=== PATIENT | female | born 1935 | race Caucasian/White ===

== ENCOUNTER 2017-08-05 11:19 | Emergency (ER) | payer MEDICARE ==
[2017-08-05 11:29] VITALS: BP 151/87
== END 2017-08-05 13:31 | disposition left against medical advice (07) ==
LOC: ED 11:19
DX: R07.89 Other chest pain (principal); Z53.21 Procedure and treatment not carried out due to patient leaving prior to being seen by health care provider
CPT/HCPCS: 93005; 99282

== ENCOUNTER 2017-08-06 15:22 | Inpatient (IN) | payer MEDICARE ==
[2017-08-06] MEDS ORDERED: Aspirin Low Dose CHEW TAB* 81 MG PO ONE (15:41)
[2017-08-06 16:10] LABS: ABS Basophils 0 10^3/ul (0-0.2); ABS Eosinophils 0 10^3/ul (0-0.6); ABS Lymphocytes 1.5 10^3/ul (1.0-4.8); ABS Monocytes 0.9 10^3/ul (0-0.8); ABS Neutrophils 5.2 10^3/ul (1.5-7.7); ABS Nucleated RBC 0 10^3/ul; Eosinophil % 0.4 % (0-6); Hematocrit 44 % (35-47); Lymphocyte % 19.6 % (25-47); Mean Corpuscular HGB Conc 34 g/dl (31-36); Mean Corpuscular Hemoglobin 32 pg (27-31); Mean Corpuscular Volume 94 fL (80-97); Mean Platelet Volume 9 um3 (7.4-10.4); Nucleated Red Blood Cells % 0.1; Platelet Count 174 10^3/ul (150-450); Red Blood Count 4.68 10^6/ul (4.0-5.4); Red Cell Distribution Width 14 % (10.5-15); White Blood Count 7.8 10^3/ul (3.5-10.8)
--- NOTE | 2017-08-06 16:20 | RAD ---
Indication: Chest pain. Single frontal view of the chest performed at 1545 hours was reviewed. No prior studies available for comparison.. No mediastinal shift is noted. Heart is of normal size and configuration. Lung plummer appear clear. Calcifications are noted surrounding both proximal humeri. 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 IMPRESSION: NO ACTIVE CARDIOPULMONARY DISEASE IS NOTED.
[2017-08-06 16:23] LABS: EGFR Non-African American 67.5 (>60)
[2017-08-06] MEDS ORDERED: Ondansetron INJ* 2 MG/ML VIAL IV PRN (17:11)
[2017-08-06] MEDS ORDERED: Heparin DRIP 25,000 UNITS(*) 25,000 UNITS/500 ML BAG IVPB SCH (17:15)
[2017-08-06] MEDS ORDERED: Heparin VIAL(*) 5000 UNITS/ML VIAL (FIVE THOUSAND) IV SCH (18:00)
[2017-08-06 18:43] LABS: INR 0.97 (0.77-1.02)
[2017-08-06] MEDS ORDERED: Nitroglycerin 2% OINT* 1 GM PAK ONE (19:50)
[2017-08-06] MEDS ORDERED: Clopidogrel TAB* 300 MG PO ONE (21:08)
--- NOTE | 2017-08-06 21:39 | CONS ---
CC: Karina Mcdonald MD, [facility] * CARDIOLOGY CONSULTATION NOTE: DATE OF CONSULT: 08/06/17 INDICATION FOR CONSULTATION: Non Q-wave myocardial infarction, NSTEMI. HISTORY OF PRESENT ILLNESS: The patient is an 82-year-old female with a history of hypertension, hypercholesterolemia, cardiac murmur, who came to the emergency room yesterday because of chest pain. The patient states she was experiencing A tremendous amount of epigastric discomfort with a lot of burping. She had some mild diaphoresis. She denied any lightheadedness, dizziness, or syncope associated with this. The patient used a few TUMS at home without any relief. She did come to the emergency room yesterday with this discomfort. She did get an EKG, which showed normal sinus rhythm with T- wave abnormalities. No evidence of ST segment elevation. The patient waited in the emergency room for a while and then decided to leave against medical advice. The patient went home and she did have some more mild chest pain at home, but slept comfortably overnight. This morning, she called her primary care physician's office and was seen today. Today, her EKG showed more marked T -wave inversions in the lateral leads and was referred back to the emergency room. On arrival to the emergency room, the patient states that she is pain free. Her initial troponin level is 8.3. PAST MEDICAL HISTORY: Significant for hypertension, palpitations, hyperlipidemia, cardiac murmur, distant history of rectal bleeding. ALLERGIES: To SULFA MEDICATIONS and STATIN MEDICATIONS. MEDICATIONS: Outpatient medications are: 1. Atenolol 50 mg a day. 2. Calcium tablets. 3. Fish oil tablets. 4. Zantac 150 mg a day. FAMILY HISTORY: Her father had a history of asthma and diabetes. Mother had diabetes and heart disease. SOCIAL HISTORY: The patient denies tobacco or alcohol use. She lives by herself. The patient is planning a trip to [place] in the next 2 weeks. PHYSICAL EXAM: Height is 5 feet 6 inches, weight 168 pounds. Temperature is afebrile, heart rate is 62, blood pressure 154/94, respiratory rate is 18, oxygen saturation 95% on room air. Sclerae anicteric. Oropharynx is pink without erythema. Carotids are 2+ without bruits. JVD is normal. Thyroid is normal. Cardiac Exam: S1, S2 with a 1/6 systolic ejection murmur heard best at the right upper sternal border. PMI is normal. Lungs are clear to auscultation bilaterally. There is no dullness to percussion. Abdomen is soft, nontender, nondistended with normoactive bowel sounds. Extremities show no edema. She has 2+ pulses throughout. The patient is awake and alert and oriented. She moves all 4 extremities equally. DIAGNOSTIC STUDIES/LAB DATA: EKG today demonstrates normal sinus rhythm with PVC. She has marked T-wave inversions in leads V4 through V6. No evidence of ST segment elevation. Chest x-ray is normal. IMPRESSION: This is an 82-year-old female with a history of hypertension and hypercholesterolemia, who came to the emergency room yesterday with chest pain. She left without being seen. Today, she comes back with a progression of her EKG. Again, today she has no symptoms. Her troponin level is 8.3. The patient was admitted to the intensive care unit. The patient will be started on heparin. The patient will undergo an echocardiogram and likely a cardiac catheterization in the morning. The patient will be given an aspirin a day. She will not be given a statin as she had them in the past and has not tolerated them. Further recommendations pending her hospital course. [id number]/[facility] #: [id number] LUDWIG
--- NOTE | 2017-08-06 21:39 | HP ---
CC: Dr. Mcdonald; Dr. Guillory * HISTORY AND PHYSICAL: DATE OF ADMISSION: 08/06/17 PRIMARY CARE PROVIDER: Dr. Mcdonald. ATTENDING PHYSICIAN WHILE IN THE HOSPITAL: Jessica Torres MD * (report dictated by Chris Hightower NP) CONSULTING LOOM FIXER SUPERVISOR: Dr. Guillory. CHIEF COMPLAINT: Chest discomfort. HISTORY OF PRESENT ILLNESS: Mrs. Martin is an 82-year-old female patient. She has a history of hypertension, hyperlipidemia and GERD. She comes in today stating that she has had intermittent chest discomfort, epigastric discomfort described as a pressure worse with lying down. This has been going on since . She just has not been feeling well. She did have associated nausea with this and it did radiate into her back at times. It has radiated up into her chest at times rather. She says the discomfort had been going on intermittently. She had no exertional chest discomfort. She said she swept her garage on Saturday. This did not bring about the symptoms, but she said the discomfort was coming and going throughout Saturday. She actually came into the ED here yesterday. She was not seen, she left and then went and saw her primary today. She was evaluated by Dr. Mcdonald. Dr. Mcdonald did an EKG, which did show significant changes compared to previous EKGs, particularly Q-wave inversions. Troponin was obtained and it was noted to be abnormal. She says that the pain was mildly worse with lying down. She said it hurts in her whole chest and her arms felt weak. It was happening intermittently on Saturday, went in until Saturday and she saw her primary today and she was referred to the ER for evaluation. She was ultimately found to have a troponin of 10 with EKG changes. There was concern obviously for NSTEMI and we were asked to evaluate for admission. PAST MEDICAL HISTORY: Significant for: 1. Hypertension. 2. Hyperlipidemia. 3. GERD. PAST SURGICAL HISTORY: 1. She has got a tubal ligation. 2. She has had cataract extractions. HOME MEDICATIONS: Include: 1. Zantac 150 mg daily. 2. Fish oil one capsule p.o. daily. 3. Calcium carbonate one tablet p.o. b.i.d. 4. Atenolol 50 mg p.o. daily. ALLERGIES TO MEDICATIONS: Include NEXIUM, STATINS and SULFA. FAMILY HISTORY: Her mother had a history of CHF. Father had a history of asthma. SOCIAL HISTORY: She is a former smoker. She quit over 50 years ago. She smoked for may be 15 years. Occasionally drinks wine. Surrogate decision maker is her son or daughter. REVIEW OF SYSTEMS: There is no documented fever. She denied having any significant weight change. There was no double vision. Denies having any ear discharge. Denied having any rhinorrhea. No sore throat. No thyroid enlargement. She denies having any chest discomfort now. She did have some from my HPI. There has been no orthopnea. There has been no nocturnal dyspnea. There has been no abdominal pain. There was associated nausea and one episode of vomiting. No dysuria. There was no frequency, no seizure, no loss of consciousness, no pruritus and no skin ulcerations. Review of 14 systems was completed, all others negative. PHYSICAL EXAMINATION GENERAL: At this time, Mrs. Martin is an 82-year-old female patient. She appears to be well nourished and well developed. She does not appear to be in any acute distress. VITAL SIGNS: Blood pressure 154/94, pulse 62, respirations 14, O2 sat 95%, temperature 98.9. HEENT: Head: Atraumatic, normocephalic. Eyes: EOMs are intact. Sclerae anicteric and not pale. Throat: Oral mucosa appears to be moist. No oropharyngeal erythema. NECK: Supple. LUNGS: Clear to auscultation bilaterally. There was no wheeze, rales or rhonchi. HEART: Sounds S1, S2. No murmurs, rubs, or gallops are appreciated. ABDOMEN: Soft. It was flat, nontender. Bowel sounds were present. EXTREMITIES: Pulses were 2+ throughout. She is moving all 4 extremities with 5 /5 strength. NEUROLOGIC: The patient is awake, alert, and oriented x3. Tongue is midline. Custodial Laborer were equal. She had no gross focal deficits. SKIN: Intact. DIAGNOSTIC STUDIES/LAB DATA: WBC is 7.8, RBC of 4.68, hemoglobin 15.0, hematocrit 44, platelet count 174. INR is pending. Her sodium was 139, potassium 3.9, chloride 103, bicarb 29, BUN 17, creatinine 0.81, glucose 103, lactic 1.3, calcium 9.5. Total bili 0.3, AST 17, ALT 18, alk phos 78. Troponin 10.16, albumin of 4.2. The patient did have a chest x-ray obtained today that revealed, impression: No evidence of cardiopulmonary disease. EKG from yesterday shows a normal sinus rhythm. She had biphasic T-waves in V5 and V6, but today's EKG does show inversions in V4, 5 and 6, which are now new and also inversions in 2, 3, and aVF, which again are all new compared to her previous EKG from yesterday. Old medical records were reviewed. ASSESSMENT AND PLAN: Mrs. Martin is an 82-year-old female patient fairly healthy and fairly active coming into the ED today with complaints of chest discomfort intermittently since , worse on Saturday night and to Saturday, evaluated today and found to have an elevated troponin with EKG changes. She will be admitted under inpatient status for: 1. Non-ST elevated myocardial infarction. Fortunately, she is chest pain free now. She is unfortunately allergic to statin. My plan, I will touch base with Dr. Guillory. The patient will be for heparin therapy, which has been started and I will go ahead and put her on Lopressor b.i.d. and holding on statin because she cannot take them, she is allergic and we will continue to follow her. An echo has been ordered. We will trend the troponins, get an EKG in the morning and she will be evaluated again by Cardiology tomorrow for possible heart catheterization. Should she have any chest pain throughout the night, we will start nitrates and we will get in touch with Cardiology. 2. Hypertension. We will continue the beta-blockade. 3. Hyperlipidemia. We will check lipid panel in the morning and we will go ahead and continue her medication as prescribed. 4. Gastroesophageal reflux disease. Continue her Zantac. 5. DVT prophylaxis. Heparin drip. 6. Code status. Full code. 7. Fluids, electrolytes, and nutrition. Clear liquid diet and she could be n.p.o. after midnight. TIME SPENT: Time spent on the admission 60 minutes, greater than half the time spent [id number] with the patient obtaining my history and physical, other half time spent going over the plan of care with the patient and implementing the plan of care. I did discuss the plan of care with my attending, Dr. Torres; she is in agreement. CHRIS HIGHTOWER, BALDEMAR [id number]/[facility] #: [id number] LUDWIG
[2017-08-06] MEDS: Nitroglycerin 2% OINT* 1 GM PAK TOPICAL SCH (21:46)
[2017-08-06] MEDS: amLODIPine TAB* 5 MG PO SCH (22:22)
[2017-08-06] MEDS: Metoprolol Tartrate TAB* 25 MG PO SCH (22:26)
[2017-08-06] MEDS ORDERED: NS 0.9% 1000 ML* 1,000 ML IV SCH (23:55)
[2017-08-07 04:48] LABS: EGFR Non-African American 82.6 (>60)
[2017-08-07 07:28] LABS: ABS Basophils 0 10^3/ul (0-0.2); ABS Eosinophils 0 10^3/ul (0-0.6); ABS Lymphocytes 1.6 10^3/ul (1.0-4.8); ABS Monocytes 0.7 10^3/ul (0-0.8); ABS Neutrophils 3.8 10^3/ul (1.5-7.7); ABS Nucleated RBC 0 10^3/ul; Eosinophil % 0.6 % (0-6); Hematocrit 42 % (35-47); Hemoglobin 13.8 g/dl (12.0-16.0); Lymphocyte % 25.7 % (25-47); Mean Corpuscular HGB Conc 33 g/dl (31-36); Mean Corpuscular Hemoglobin 32 pg (27-31); Mean Corpuscular Volume 95 fL (80-97); Mean Platelet Volume 9 um3 (7.4-10.4); Nucleated Red Blood Cells % 0.1; Platelet Count 148 10^3/ul (150-450); Red Blood Count 4.39 10^6/ul (4.0-5.4); Red Cell Distribution Width 14 % (10.5-15); White Blood Count 6.3 10^3/ul (3.5-10.8)
[2017-08-07] MEDS ORDERED: Perflutren Lipid Microsphere* 3 ML VIAL ONE (07:51)
[2017-08-07] MEDS ORDERED: Aspirin Low Dose CHEW TAB* 81 MG PO SCH (09:00)
[2017-08-07] MEDS: Metoprolol Tartrate TAB* 25 MG PO SCH ×2 (09:00→20:57)
[2017-08-07] MEDS: Famotidine TAB* 20 MG PO SCH (09:01)
[2017-08-07] MEDS: amLODIPine TAB* 5 MG PO SCH (09:01)
[2017-08-07] MEDS: Nitroglycerin 2% OINT* 1 GM PAK TOPICAL SCH (09:01)
[2017-08-07] MEDS: FISH OIL CHOLECALCIFEROL PO SCH (09:04)
--- NOTE | 2017-08-07 09:30 | ECHO ---
Patient: ALEN DOTSON [facility] Rec#: [id number] : 1935 Date: 08/07/2017 Age: 82y Height: 167.64 cm / 66.0 in Weight: 76.2 kg / 167.9 lbs Sex: F BSA: 1.86 Room#: ICU10 Admit Date#: 08/06/2017 Type: Inpatient Referring: Zia Guillory MD Reading: January Sy MD Junior Project Coordinator: So Conn CARL CC: Karina Mcdonald MD Transthoracic Echocardiogram Indication: CP BP: 142/73 HR: 61 Rhythm: NSR Findings History: Murmur,GERD,HTN,HLD. Technical Comments: The study is technically limited due to poor acoustic windows. Definity used to enhance images. Left Ventricle: The left ventricular chamber size is decreased. Moderate concentric left ventricular hypertrophy is observed. There is a focal wall motion abnormality present.Severe hypokinesis of the inferior/posterior/lateral wall. There is moderately decreased left ventricular systolic function. The estimated ejection fraction is 40-45%. Abnormal left ventricular diastolic filling is observed, consistent with impaired relaxation. Left Atrium: The left atrium is severely dilated. Right Ventricle: The right ventricular cavity size is normal. The right ventricular global systolic function is normal. Right Atrium: The right atrium is mild to moderately dilated. Aortic Valve: The aortic valve is trileaflet. The aortic valve leaflets are moderately thickened. Systolic excursion of the aortic valve cusps is reduced. Mild aortic cusp sclerosis is present. There is a trace of aortic regurgitation. There is mild to moderate aortic stenosis. The mean gradient of the aortic valve is 11.41 mmHg. The aortic valve area, by VTI's, is calculated at 1.5 cm2. The highest aortic valve velocity was obtained with the standard probe from the A5C view. Mitral Valve: The mitral valve leaflets are mildly thickened. There is moderate mitral regurgitation. There is no evidence of mitral stenosis. Tricuspid Valve: The tricuspid valve leaflets are normal. There is moderate tricuspid regurgitation. The tricuspid regurgitant jet is directed toward the RA free wall. There is evidence of mild pulmonary hypertension. There is no tricuspid stenosis. Pulmonic Valve: The pulmonic valve appears normal. There is trace to mild pulmonic regurgitation. There is no pulmonic stenosis. Pericardium: The pericardium appears normal. Aorta: There is no dilatation of the ascending aorta. The aortic arch is not well visualized. There is no dilation of the aortic root. Pulmonary Artery: The main pulmonary artery appears normal. Venous: The venous system is not well visualized. Contrast: Definity was used to optimize study. A total of 4 ml used. Intravenous contrast was used to enhance endocardial border definition. Conclusions Technically difficult study. Moderate concentric left ventricular hypertrophy is observed. There is a focal wall motion abnormality present.Severe hypokinesis of the inferior/posterior/lateral wall. The estimated ejection fraction is 40-45%. Abnormal left ventricular diastolic filling is observed, consistent with impaired relaxation. The right ventricular global systolic function is normal.The aortic valve leaflets are moderately thickened. There is mild to moderate aortic stenosis: mean gradient 11.41 mmHg, ELIZABETH by VTI's, is calculated at 1.5 cm2. DI 0.6 There is a trace of aortic regurgitation. There is moderate mitral regurgitation. There is moderate tricuspid regurgitation. There is evidence of mild pulmonary hypertension: 41 mmHg. No prior echo to compare. Measurements Name Value Normal Range RVIDd (AP) 2D 2.9 cm (0.9 - 2.6) RVDdMajor (2D) 2.7 cm (2.2 - 4.4) RAd ISD 4CH 5.8 cm (3.4 - 4.9) RA (A4C)W 3 cm (2.9 - 4.6) IVSd (2D) 1.5 cm (0.6 - 1) LVPWd (2D) 1.1 cm (0.6 - 1) LVIDd (2D) 3.2 cm (3.6 - 5.4) LVIDs (2D) 2.1 cm - LV FS (2D) 36 % (25 - 45) Aortic Annulus 1.5 cm (1.4 - 2.6) Ao root diameter (2D) 3.2 cm (2.1 - 3.5) Ascending Ao 3.1 cm (2.1 - 3.4) LA dimension (AP) 2D 4.3 cm (2.3 - 3.8) LAd ISD 4CH 5.7 cm (2.9 - 5.3) LA ISD 4CH W 3.9 cm (2.5 - 4.5) Name Value Normal Range LA ESV SP 4CH (A/L) 65 ml - LA ESV SP 2CH (A/L) 133 ml - LA ESV BP (A/L) 106 ml - LA ESV BP (A/L) index 54.62 ml/m2 - LA ESV SP 4CH (MOD) 61 ml - LA ESV SP 2CH (MOD) 126 ml - Name Value Normal Range MV E-wave Vmax 0.7 m/sec - MV deceleration time 270 msec - MV A-wave Vmax 1.1 m/sec - MV E:A ratio 0.65 ratio - LV septal e' Vmax 0.07 m/sec - LV lateral e' Vmax 0.07 m/sec - LV E:e' septal ratio 10 ratio - LV E:e' lateral ratio 10 ratio - Name Value Normal Range AV Vmax 2.4 m/sec - AV VTI 54.3 cm - AV peak gradient 22.3 mmHg - AV mean gradient 11.41 mmHg - LVOT diameter 1.4 cm - LVOT Vmax 1.4 m/sec - LVOT VTI 32.1 cm - LVOT peak gradient 8.25 mmHg - LVOT mean gradient 3.63 mmHg - SV LVOT 46 ml - ELIZABETH (continuity Vmax) 1.5 cm2 - ELIZABETH (continuity VTI) 1.5 cm2 - Name Value Normal Range MR Vmax 4.7 m/sec - MR VTI 168.3 cm - Name Value Normal Range TR Vmax 2.9 m/sec - TR peak gradient 33 mmHg - RAP 8 mmHg - RVSP 41 mmHg - Name Value Normal Range PV Vmax 0.4 m/sec - PV peak gradient 0.7 mmHg -
[2017-08-07] MEDS ORDERED: NS 0.9% 1000 ML* 1,000 ML IV SCH ×2 (10:00→16:15)
[2017-08-07] MEDS ORDERED: Heparin(*) 1000 UNIT/ML 10 ML VIAL CATH LAB IV ONE ×2 (12:18→12:20)
[2017-08-07] MEDS ORDERED: fentaNYL* 50 MCG/ML 2 ML VIAL (100 MCG VIAL) ONE (12:18)
[2017-08-07] MEDS ORDERED: VERAPAMIL 2.5 MG/ML 4 ML VIAL ONE (12:18)
[2017-08-07] MEDS ORDERED: nitroGLYCERIN DRIP* 25,000 MCG/250 ML BTL ONE (12:19)
[2017-08-07] MEDS ORDERED: Lidocaine 1% INJ* 10 MG/ML 30 ML SDV ONE (12:19)
[2017-08-07] MEDS ORDERED: Iohexol 350 (CONTRAST) 200 ML MDV IV ONE (12:19)
[2017-08-07] MEDS ORDERED: Heparin 2 UNITS/ML IVPREMIX* 2,000 ML IV ONE (12:19)
[2017-08-07] MEDS ORDERED: Midazolam* 1 MG/ML 10 ML VIAL (10 MG) ONE (12:20)
[2017-08-07] MEDS ORDERED: Ticagrelor* 90 MG TAB PO ONE (13:27)
[2017-08-07] MEDS ORDERED: Nitroglycerin TAB 0.4 MG* 0.4 MG TAB SL PRN (16:05)
--- NOTE | 2017-08-07 16:19 | PN ---
Subjective Date of Service: 08/07/17 Interval History: No overnight events. No headache, bleeding, chest pain, shortness of breath. Family History: Unchanged from Admission Social History: Unchanged from Admission Past Medical History: Unchanged from Admission Objective Active Medications: Acetaminophen (Tylenol Tab*) 650 mg PO Q4H PRN PRN Reason: FEVER/PAIN Amlodipine Besylate (Norvasc Tab*) 5 mg PO DAILY [facility] Last Admin: 08/07/17 09:01 Dose: 5 mg Aspirin (Aspirin Low Dose Tab*) 81 mg PO DAILY [facility] Last Admin: 08/07/17 09:01 Dose: 81 mg Famotidine (Pepcid Tab*) 20 mg PO DAILY [facility] PRN Reason: Protocol Last Admin: 08/07/17 09:01 Dose: 20 mg Sodium Chloride (Ns 0.9% 1000 Ml*) 1,000 mls @ 100 mls/hr IV .per rate [facility] Metoprolol Tartrate (Lopressor Tab*) 25 mg PO BID [facility] Last Admin: 08/07/17 09:00 Dose: 25 mg Nitroglycerin (Nitroglycerin 2% Oint*) 0.5 inch TOPICAL 0800,1400 [facility] PRN Reason: Protocol Last Admin: 08/07/17 09:01 Dose: 0.5 inch Non-Formulary Medication (Fish Oil-Cholecalciferol [Fish Oil + D3 5723-3874 Mg- Unit]) 1 cap PO DAILY [facility] Last Admin: 08/07/17 09:04 Dose: Not Given Ondansetron HCl (Zofran Inj*) 4 mg IV Q6H PRN PRN Reason: NAUSEA Pharmacy Profile Note (Nitro Patch/Oint Remove*) 1 note TOPICAL 1999 [facility] Vital Signs - 8 hr 08/07/17 08/07/17 08/07/17 08:36 09:00 09:01 Temperature Pulse Rate 68 67 Respiratory 23 27 Rate Blood Pressure 167/85 (mmHg) O2 Sat by Pulse 97 97 97 Oximetry 08/07/17 08/07/17 08/07/17 09:46 10:00 10:01 Temperature Pulse Rate 60 60 63 Respiratory 15 20 20 Rate Blood Pressure 117/72 126/73 (mmHg) O2 Sat by Pulse 96 96 94 Oximetry 08/07/17 08/07/17 08/07/17 11:00 12:00 15:02 Temperature 98.2 F Pulse Rate 57 58 Respiratory 18 27 21 Rate Blood Pressure 115/71 125/77 (mmHg) O2 Sat by Pulse 94 91 Oximetry 08/07/17 08/07/17 08/07/17 15:04 15:15 15:30 Temperature Pulse Rate 73 Respiratory 16 23 21 Rate Blood Pressure 123/81 112/85 129/87 (mmHg) O2 Sat by Pulse 93 Oximetry 08/07/17 15:45 Temperature Pulse Rate 72 Respiratory 22 Rate Blood Pressure 150/82 (mmHg) O2 Sat by Pulse 94 Oximetry Oxygen Devices in Use Now: None Appearance: well appearing elderly female Eyes: No Scleral Icterus Ears/Nose/Mouth/Throat: NL Teeth, Lips, Gums Neck: NL Appearance and Movements; NL JVP, Trachea Midline Respiratory: Symmetrical Chest Expansion and Respiratory Effort, Clear to Auscultation Cardiovascular: NL Sounds; No Murmurs; No JVD Abdominal: NL Sounds; No Tenderness; No Distention Lymphatic: No Cervical Adenopathy Extremities: No Edema Skin: - - seborrheic keratosis hands Neurological: Alert and Oriented x 3 Result Diagrams: 08/07/17 04:18 08/07/17 04:17 Microbiology and Other Data: Microbiology 08/06/17 18:30 Nasal Screen MRSA (PCR)(SERENITY) - Final Nasal Mrsa Negative Assess/Plan/Problems-Billing Assessment: - Patient Problems (1) NSTEMI (non-ST elevated myocardial infarction) Current Visit: Yes Status: Acute Code(s): I21.4 - NON-ST ELEVATION (NSTEMI) MYOCARDIAL INFARCTION SNOMED Code(s): 154333956 Comment: chest pain free. EKG shows lateral TWIs that are new from prior. [facility] today. Heparin drip, plavix, bb. Unfortunately she is allergic to statins. Of note, she does have history of a diverticular bleed (which did not require transfusions), which should be kept in mind with her new needs for antiplatelet therapy.
[2017-08-07] MEDS: Atorvastatin* 80 MG TAB PO SCH (16:31)
[2017-08-07] MEDS: Acetaminophen TAB* 325 MG PO PRN ×2 (16:31→22:14)
[2017-08-07] MEDS ORDERED: Nitro Patch/OINT Remove TOPICAL SCH (20:00)
[2017-08-07] MEDS: Ticagrelor* 90 MG TAB PO SCH (20:57)
[2017-08-08 05:44] LABS: Hematocrit 42 % (35-47); Hemoglobin 14.1 g/dl (12.0-16.0); Mean Corpuscular HGB Conc 33 g/dl (31-36); Mean Corpuscular Hemoglobin 32 pg (27-31); Mean Corpuscular Volume 95 fL (80-97); Mean Platelet Volume 9 um3 (7.4-10.4); Platelet Count 158 10^3/ul (150-450); Red Blood Count 4.46 10^6/ul (4.0-5.4); Red Cell Distribution Width 14 % (10.5-15); White Blood Count 6.5 10^3/ul (3.5-10.8)
[2017-08-08] MEDS: Nitroglycerin 2% OINT* 1 GM PAK TOPICAL SCH (07:33)
[2017-08-08] MEDS: FISH OIL CHOLECALCIFEROL PO SCH (08:40)
[2017-08-08] MEDS: Aspirin Low Dose CHEW TAB* 81 MG PO SCH (08:43)
[2017-08-08] MEDS: Metoprolol Tartrate TAB* 25 MG PO SCH ×2 (08:43→20:51)
[2017-08-08] MEDS: Ticagrelor* 90 MG TAB PO SCH ×2 (08:43→20:51)
[2017-08-08] MEDS: amLODIPine TAB* 5 MG PO SCH (08:43)
[2017-08-08] MEDS: Famotidine TAB* 20 MG PO SCH (08:43)
--- NOTE | 2017-08-08 12:22 | PN ---
Subjective Date of Service: 08/08/17 Interval History: LHC done yesterday with 2 stents to the OM1. R radial access. Feeling well this morning with no complaints. She has been out of bed to the bathroom with no trouble. No chest pain, shortness of breath, palpitations. No events on tele. Family History: Unchanged from Admission Social History: Unchanged from Admission Past Medical History: Unchanged from Admission Objective Active Medications: Acetaminophen (Tylenol Tab*) 650 mg PO Q4H PRN PRN Reason: FEVER/PAIN Last Admin: 08/07/17 22:14 Dose: 650 mg Amlodipine Besylate (Norvasc Tab*) 5 mg PO DAILY [facility] Last Admin: 08/08/17 08:43 Dose: 5 mg Aspirin (Aspirin Low Dose Tab*) 81 mg PO DAILY [facility] Last Admin: 08/08/17 08:43 Dose: 81 mg Atorvastatin Calcium (Lipitor*) 80 mg PO 1700 [facility] Last Admin: 08/07/17 16:31 Dose: 80 mg Famotidine (Pepcid Tab*) 20 mg PO DAILY [facility] PRN Reason: Protocol Last Admin: 08/08/17 08:43 Dose: 20 mg Sodium Chloride (Ns 0.9% 1000 Ml*) 1,000 mls @ 100 mls/hr IV .per rate [facility] Last Admin: 08/07/17 22:10 Dose: 100 mls/hr Metoprolol Tartrate (Lopressor Tab*) 25 mg PO BID [facility] Last Admin: 08/08/17 08:43 Dose: 25 mg Nitroglycerin (Nitroglycerin Tab 0.4 Mg*) 0.4 mg SL Q5M PRN PRN Reason: ANGINA Non-Formulary Medication (Fish Oil-Cholecalciferol [Fish Oil + D3 3401-9685 Mg- Unit]) 1 cap PO DAILY [facility] Last Admin: 08/08/17 08:40 Dose: Not Given Ondansetron HCl (Zofran Inj*) 4 mg IV Q6H PRN PRN Reason: NAUSEA Ticagrelor (Brilinta*) 90 mg PO BID [facility] Last Admin: 08/08/17 08:43 Dose: 90 mg Vital Signs - 8 hr 08/08/17 08/08/17 08/08/17 05:00 06:00 07:00 Temperature Pulse Rate 62 65 65 Respiratory 18 21 19 Rate Blood Pressure 118/65 135/77 142/89 (mmHg) O2 Sat by Pulse 97 95 96 Oximetry 08/08/17 08/08/17 08/08/17 07:37 07:54 08:00 Temperature 98.5 F Pulse Rate 63 Respiratory 20 16 18 Rate Blood Pressure 112/73 (mmHg) O2 Sat by Pulse 96 Oximetry 08/08/17 08/08/17 08/08/17 08:19 09:00 10:00 Temperature Pulse Rate 73 79 63 Respiratory 15 21 21 Rate Blood Pressure 141/81 147/82 (mmHg) O2 Sat by Pulse 97 97 95 Oximetry 08/08/17 11:00 Temperature Pulse Rate 62 Respiratory 22 Rate Blood Pressure 116/72 (mmHg) O2 Sat by Pulse 95 Oximetry Oxygen Devices in Use Now: None Appearance: elderly, well appearing female Eyes: No Scleral Icterus Ears/Nose/Mouth/Throat: NL Teeth, Lips, Gums Neck: NL Appearance and Movements; NL JVP Respiratory: Symmetrical Chest Expansion and Respiratory Effort Cardiovascular: NL Sounds; No Murmurs; No JVD, - - systolic murmur loudest at RUSB Abdominal: NL Sounds; No Tenderness; No Distention Lymphatic: No Cervical Adenopathy Extremities: No Edema Skin: No Rash or Ulcers Neurological: Alert and Oriented x 3 Result Diagrams: 08/08/17 05:30 08/08/17 05:30 Microbiology and Other Data: Microbiology 08/06/17 18:30 Nasal Screen MRSA (PCR)([facility]) - Final Nasal Mrsa Negative Assess/Plan/Problems-Billing Assessment: - Patient Problems (1) NSTEMI (non-ST elevated myocardial infarction) Current Visit: Yes Status: Acute Code(s): I21.4 - NON-ST ELEVATION (NSTEMI) MYOCARDIAL INFARCTION SNOMED Code(s): 198686437 Comment: S/p PCI with 2 LILIANE to the OM. On ASA, brilinta. She has had myalgias with statins, so I discussed retrying one to see if her symptoms returned. She's been restarted on atorvastatin, but may consider switching to rosuvastatin for fewer side effects. Continue metoprolol. Repeat ekg this morning shows improvement in the lateral TWIs.
[2017-08-08] MEDS: Lisinopril TAB* 5 MG PO SCH (14:07)
[2017-08-08] MEDS: Atorvastatin* 80 MG TAB PO SCH (17:08)
[2017-08-09 06:54] LABS: ABS Basophils 0 10^3/ul (0-0.2); ABS Eosinophils 0.1 10^3/ul (0-0.6); ABS Lymphocytes 1.1 10^3/ul (1.0-4.8); ABS Monocytes 0.6 10^3/ul (0-0.8); ABS Neutrophils 3.3 10^3/ul (1.5-7.7); ABS Nucleated RBC 0 10^3/ul; Eosinophil % 1.5 % (0-6); Hematocrit 39 % (35-47); Hemoglobin 13.1 g/dl (12.0-16.0); Mean Corpuscular HGB Conc 34 g/dl (31-36); Mean Corpuscular Hemoglobin 32 pg (27-31); Mean Corpuscular Volume 94 fL (80-97); Mean Platelet Volume 9 um3 (7.4-10.4); Nucleated Red Blood Cells % 0; Platelet Count 153 10^3/ul (150-450); Red Blood Count 4.13 10^6/ul (4.0-5.4); Red Cell Distribution Width 14 % (10.5-15); White Blood Count 5.1 10^3/ul (3.5-10.8)
[2017-08-09 07:01] LABS: EGFR Non-African American 78.6 (>60)
[2017-08-09] MEDS ORDERED: Atenolol TAB* 50 MG PO SCH (09:00)
[2017-08-09] MEDS ORDERED: CMC:OMEGA-3 FATTY ACIDS (NF) 1,000 MG CAP PO SCH (09:00)
[2017-08-09] MEDS ORDERED: Cholecalciferol TAB* 1000 UNITS PO SCH (09:00)
[2017-08-09] MEDS: Ticagrelor* 90 MG TAB PO SCH (10:03)
[2017-08-09] MEDS: Famotidine TAB* 20 MG PO SCH (10:04)
[2017-08-09] MEDS: Aspirin Low Dose CHEW TAB* 81 MG PO SCH (10:04)
[2017-08-09] MEDS: Lisinopril TAB* 5 MG PO SCH (10:04)
[2017-08-09 11:40] VITALS: BP 134/77
--- NOTE | 2017-08-10 02:41 | CATH ---
STENT REPORT: DATE OF PROCEDURE: 08/07/17 PRIMARY: Dr. Mcdonald. SEWING MACHINE OPERATOR FLOORPERSON: Dr. Guillory. PROCEDURES: Right radial artery access, bilateral selective coronary cineangiography, stent placement, circumflex OM, 2.75 x 28 Synergy drug-eluting stent, more proximal 2.75 x 12 Emerge drug-eluting stent, IVUS circumflex OM. HISTORY: An 82-year-old woman with non-ST elevation infarct. PROCEDURE ACCESS: Right radial artery sheath 6F slender. MEDICATIONS: 1. Subcu lidocaine. 2. IV Versed. 3. IV fentanyl. 4. Heparin 3000 units. 5. Nitroglycerin 300 mcg. 6. Verapamil 3 mg IA. 7. Aspirin 81 mg p.o. 8. Heparin 4000 units IV. 9. Brilinta 180 mg p.o. loading dose. 10. Heparin 2000 units IV. DIAGNOSTIC CATHETER: 5F TIG4. GUIDING CATHETER: Circumflex 6F VL3.5, wire 14 BMW. The circumflex OM was selected with some difficulty because of angulation. The stent would not pass primarily. The mid OM stenosis was then predilated with 2.75 x 20 NC Emerge using a GuideLiner support catheter, 12 atmospheres 10 seconds. A Synergy 2.75 x 28 drug- eluting stent was then deployed in the mid OM1 at 11 atmospheres 12 seconds. A proximal dissection was covered with a 2.75 x 12 Synergy drug- eluting stent 14 atmospheres 30 seconds ensuring coverage of the visible portion of the dissection, but avoiding the ostium in order not to compromise the circumflex. A 2.75 x 20 NC balloon was then used to post dilate the mid marginal stent, 16 atmospheres 30 seconds. Because of lucency proximal to the more proximal stent, it was evaluated angiographically in several projections over time. Even though there is no progression of lucency, I was concerned about significant residual stenosis/dissection, IVUS was therefore used to evaluate the circumflex OM using an OptiCross 3-Italian IVUS catheter. After IVUS evaluation, the hemostatic band was used. HEMODYNAMICS: Initial BP 129/79, final BP 125/79. IVUS results, distal reference 6.25 sq. mm, 2.66 x 3.02 mm in the OM. IVUS evaluation of the 2 deployed stents showed adequate expansion and apposition. There was a residual moderate ostial OM stenosis proximal to the proximal stent with an MLA of 3.28 sq. mm, 57% stenosis versus reference diameter. There was also a type 1 dissection at the ostium without luminal compromise or staining. It was therefore not stented. ANGIOGRAPHY: RCA. The RCA is moderate, dominant with a mid 80% stenosis, likely not the culprit. There is heavy calcification. Left Main. The left main has no stenosis. LAD. The LAD is tortuous, extends past the apex, there is a small diagonal, the LAD has scattered luminal regularity, less than 50% stenosis. Circumflex: The circumflex is not dominant, large with a large single marginal branch, which is tortuous, in its mid portion has a 90% stenosis with lucency bridging a small side branch. The marginal supplies most of the obtuse margin , the circumflex ends with a very small posterolateral. After mid circumflex OM stent placement, there is a proximal dissection on the greater than 90-degree area of angulation, flow is preserved. After stent placement at the proximal dissection and post dilatation of the more distal stent, there is JUAN-3 flow, but lucency proximal to the proximal stent without staining, or evident dissection. This remained stable overtime in several projections. IVUS findings were as above. Angiography post IVUS was unchanged. CONCLUSION: 1. Two-vessel disease with mid RCA stenosis, and culprit circumflex OM stenosis. Successful drug-eluting stent placement, circumflex OM accompanied by proximal circumflex OM dissection, covered successfully with a drug-eluting stent. Accompanied by moderate ostial 57% stenosis by IVUS with a type 1 dissection, not stented. 2. Her RCA can be evaluated for functional significance as an outpatient. LV function will be measured noninvasively. 3. Successful right radial artery access. [id number]/[facility] #: [id number] [facility]
--- NOTE | 2017-08-10 17:44 | DS ---
CC: Dr. Edwards * DISCHARGE SUMMARY: DATE OF ADMISSION: 08/06/17 DATE OF DISCHARGE: 08/09/17 PRIMARY CARE PHYSICIAN: Dr. Mcdonald. ATTENDING PHYSICIAN: Dr. Sumi Tyler. PRINCIPAL DISCHARGE DIAGNOSIS: Acute coronary syndrome with non-ST elevation myocardial infarction. SECONDARY DISCHARGE DIAGNOSES: 1. Hypertension. 2. Hyperlipidemia. 3. Gastroesophageal reflux disease. PHYSICAL EXAMINATION AT THE TIME OF DISCHARGE: General: Alert, elderly- appearing female, walking in the hallways. HEENT: Pupils are equal, round, and reactive to light. No nystagmus. Moist mucosa. Neck: No JVP. No cervical adenopathy. Chest: Regular rate and rhythm. Harsh systolic murmur over the apex with radiation throughout. PMI is nondisplaced. Lungs: Clear bilaterally. Abdomen: Soft, nontender, nondistended. No CVA tenderness. Extremities: A 2-cm hematoma on the right wrist. Radial and ulnar pulses 2+. No lower extremity edema. Neurologic: Oriented x3. Strength 5+ throughout. Sensation intact. HOSPITAL COURSE BY PROBLEM: 1. Acute coronary syndrome. Ms. Martin was sent in from her primary care physician with reports of chest pain and an outpatient positive troponin. In the hospital, her troponin peaked at 10.34. Her EKG was significant for lateral T-wave inversions that were new from a prior EKG. She was taken to the laboratory apparatus glass grinder on 08/07/17 and was found to have a 90% occlusion in the OM1. Two drug -eluting stents were placed and she remains hemodynamically stable and had no events on telemetry over the next 24 hours. She was continued on aspirin and Brilinta, which are both new medications for her. She was continued on her home atenolol, and atorvastatin was added for her. Of note, statins are listed on her allergies that she has had myalgias with them in the past. However, she agreed to retry one given the benefit of statin in coronary artery disease. She was instructed to discontinue the statin should myalgias recur. At the time of discharge, she was not experiencing any muscle aches. I also suggested to that her that if they return, she can request to be switched to an alternative statin that is less likely to cause myalgias. I requested a followup appointment for her with Dr. Edwards and with the primary care physician , Dr. Mcdonald. 2. Hypertension. Her blood pressure was well controlled while she was in the hospital. Lisinopril 5 mg was added for post ACS treatment and she was continued on her beta dorinda. DISCHARGE MEDICATIONS: 1. Aspirin 81 mg daily. 2. Brilinta 90 mg daily. 3. Atenolol 50 mg daily. 4. Lisinopril 5 mg daily. 5. Zantac 150 mg daily. 6. Atorvastatin 80 mg daily. 7. Calcium b.i.d. 8. Fish oil daily. FOLLOWUP NEEDED: Ms. Martin is leaving for a trip to [place] in 2 weeks. She will see Dr. Edwards next week and I also requested a followup appointment for her with Dr. Mcdonald. TIME SPENT: Greater than 60 minutes was spent on this discharge. [id number]/[facility] #: [id number] MTDD
== END 2017-08-09 15:10 | disposition home or self-care (01) | DRG 247 ==
LOC: ED 15:22 → ICU 17:08 → MEDTELE 08-08 13:44
PROVIDERS: ADMIT Internal Medicine; ATTEND Internal Medicine
PROC: 027035Z Dilation of Coronary Artery, One Artery with Two Drug-eluting Intraluminal Devices, Percutaneous Approach (ICD-10-PCS; 2017-08-07)
PROC: B2111ZZ Fluoroscopy of Multiple Coronary Arteries using Low Osmolar Contrast (ICD-10-PCS; 2017-08-07)
PROC: 4A023N7 Measurement of Cardiac Sampling and Pressure, Left Heart, Percutaneous Approach (ICD-10-PCS; principal; 2017-08-07 14:15)
DX: I21.4 Non-ST elevation (NSTEMI) myocardial infarction (principal); E78.5 Hyperlipidemia, unspecified; I10 Essential (primary) hypertension; I24.9 Acute ischemic heart disease, unspecified; K21.9 Gastro-esophageal reflux disease without esophagitis; Z79.02 Long term (current) use of antithrombotics/antiplatelets; Z79.82 Long term (current) use of aspirin; Z98.51 Tubal ligation status; Z98.42 Cataract extraction status, left eye; Z98.41 Cataract extraction status, right eye; Z88.2 Allergy status to sulfonamides; Z88.8 Allergy status to other drugs, medicaments and biological substances; Z82.49 Family history of ischemic heart disease and other diseases of the circulatory system; Z82.5 Family history of asthma and other chronic lower respiratory diseases; Z87.891 Personal history of nicotine dependence
CPT/HCPCS: 36415; 71045; 80048; 80053; 80061; 83036; 83605; 83735; 84484; 85025; 85027; 85610; 85730; 87641; 93005; 93306; 93454; 99156; 99157; 99282; A9270-GY; C1725; C1769; C1876; C1887; C8929; C9600-LC; J1644; J2250; J3010

== ENCOUNTER 2017-08-11 20:31 | Observation (INO) | payer MEDICARE ==
[2017-08-11] MEDS ORDERED: Al Hydrox/Mg Hydrox/Simet LIQ* 30 ML UDC PO ONE ×2 (21:07→22:38)
[2017-08-11] MEDS ORDERED: Aspirin TAB* 325 MG PO ONE (21:07)
[2017-08-11] MEDS ORDERED: Lidocaine 2% VISCOUS* 15 ML UDC PO ONE ×2 (21:07→22:38)
--- NOTE | 2017-08-11 21:11 | RAD ---
INDICATION: Chest pain COMPARISON: August 06, 2017 TECHNIQUE: An AP portable view obtained at 2015 at hours is submitted. FINDINGS: Bones/Soft Tissues: There are no acute bony findings. Cardiomediastinal: The cardiomediastinal silhouette is normal. Lungs: There are no infiltrates. Pleura: There are no pleural effusions. Other: None IMPRESSION: NO ACTIVE DISEASE.
[2017-08-11] MEDS: Nitroglycerin TAB 0.4 MG* 0.4 MG TAB SL ONE ×2 (21:17→21:32)
[2017-08-11 21:44] LABS: ABS Basophils 0 10^3/ul (0-0.2); ABS Eosinophils 0.1 10^3/ul (0-0.6); ABS Lymphocytes 1.1 10^3/ul (1.0-4.8); ABS Monocytes 0.6 10^3/ul (0-0.8); ABS Neutrophils 4.3 10^3/ul (1.5-7.7); ABS Nucleated RBC 0 10^3/ul; Eosinophil % 1.3 % (0-6); Hematocrit 43 % (35-47); Hemoglobin 14.4 g/dl (12.0-16.0); Lymphocyte % 17.6 % (25-47); Mean Corpuscular HGB Conc 34 g/dl (31-36); Mean Corpuscular Hemoglobin 32 pg (27-31); Mean Corpuscular Volume 93 fL (80-97); Mean Platelet Volume 9 um3 (7.4-10.4); Nucleated Red Blood Cells % 0; Platelet Count 187 10^3/ul (150-450); Red Blood Count 4.57 10^6/ul (4.0-5.4); Red Cell Distribution Width 13 % (10.5-15); White Blood Count 6.1 10^3/ul (3.5-10.8)
--- NOTE | 2017-08-11 21:57 | RAD ---
INDICATION: Chest pain COMPARISON: Chest x-ray same date TECHNIQUE: Noncontrast axial source images were obtained from the thoracic inlet to the hemidiaphragms. Coronal and sagittal reconstructed images were acquired. The visualized neck to include the thyroid appear normal. Chest wall: There are no acute abnormalities of the bony thorax or chest wall. There is no supraclavicular, infraclavicular, or axillary lymphadenopathy. Lungs : There are no pulmonary parenchymal masses or infiltrates. The pulmonary interstitium appears normal. There are no endobronchial lesions. Cardiomediastinal structures: The heart is normal in size. There is no pericardial effusion. There is no evidence of aortic aneurysm or dissection. There is mild elongation of the aorta with tortuosity. There are moderate intimal calcifications. There are coronary artery calcifications. The pulmonary vessels appear normal. There is no mediastinal or hilar adenopathy. The esophagus appears normal. Pleura : There are no pleural-based masses or effusions. Other: There are no acute or significant CT findings of the visualized upper abdomen. IMPRESSION: Noncontrast CT imaging the chest x-rays no acute findings. Lungs clear
[2017-08-11] MEDS ORDERED: Nitroglycerin 2% OINT* 1 GM PAK TOPICAL ONE (22:01)
[2017-08-11] MEDS ORDERED: nitroGLYCERIN DRIP* 25,000 MCG/250 ML BTL IV ONE (22:07)
[2017-08-11] MEDS: Metoprolol Tartrate IV* 1 MG/ML 5 ML VIAL IV PRN ×2 (22:50→23:08)
--- NOTE | 2017-08-12 | ED ---
Ethan Taylor Stephanie, scribed for Guilherme Moreno MD on 08/11/17 at 2114 . HPI Chest Pain - HPI Summary HPI Summary: The pt is a 82 y/o F presenting to the ED with c/o CP that began at 18:30 today. The CP radiates up the neck. Symptoms include back pain. Pt denies SOB or pain with inhalation from baseline. Her pain is rated as a 5 in severity currently. The pt reports she was recently taken off of her acid reflux pills. - History of Current Complaint Chief Complaint: EDChestPainROMI Time Seen by Provider: 08/11/17 20:59 Hx Obtained From: Patient Onset/Duration: Started Hours Ago - 3, Still Present Timing: Constant Current Severity: Moderate Pain Intensity: 4 Pain Scale Used: 0-10 Numeric Chest Pain Location: Mid Sternal Chest Pain Radiates: Yes Chest Pain Radiates To:: Neck Aggravating Factor(s): Nothing Alleviating Factor(s): Nothing Associated Signs and Symptoms: Positive: Chest Pain, Back Pain. Negative: Shortness of Breath - Additional Pertinent History Primary Care Physician: [id number] - Allergy/Home Medications Allergies/Adverse Reactions: Allergies Allergy/AdvReac Type Severity Reaction Status Date / Time Esomeprazole [From Nexium] Allergy Itching Verified 07/02/14 08:52 Statins Allergy Muscle Ache Verified 07/02/14 08:52 Sulfa Drugs Allergy Hives Verified 07/02/14 08:52 PMH/Surg Hx/FS Hx/Imm Hx Endocrine/Hematology History: Denies: Hx Anticoagulant Therapy Cardiovascular History: Reports: Hx Hypercholesterolemia, Hx Hypertension GI History: Reports: Hx Diverticulosis, Hx Gastroesophageal Reflux Disease History: Reports: Hx Kidney Stones Sensory History: Reports: Hx Contacts or Glasses Denies: Hx Hearing Aid Opthamlomology History: Reports: Hx Contacts or Glasses - Surgical History Surgery Procedure, Year, and Place: Tubal ligation approx. 50 yrs ago Hx Anesthesia Reactions: No Infectious Disease History: No Infectious Disease History: Denies: Traveled Outside the [place] in Last 30 Days - Family History Known Family History: Positive: Cardiac Disease - Social History Occupation: Retired Lives: Alone Alcohol Use: Occasionally Substance Use Type: Reports: None Smoking Status (MU): Former Smoker Review of Systems Negative: Fever, Chills Negative: Erythema Negative: Sore Throat Positive: Chest Pain Negative: Shortness Of Breath, Cough Negative: Abdominal Pain, Vomiting, Nausea Negative: dysuria, hematuria Positive: Other - back pain. Negative: Myalgia, Edema Neurological: Other - Negative: dizziness All Other Systems Reviewed And Are Negative: Yes Physical Exam - Summary Physical Exam Summary: Constitutional: Well-developed, Well-nourished, Alert. (-) Distressed Skin: Warm, Dry HENT: Normocephalic; Atraumatic Eyes: Conjunctiva normal Neck: Musculoskeletal ROM normal neck. (-) JVD, (-) Stridor, (-) Tracheal deviation Cardio: Rhythm regular, rate normal, Heart sounds normal; Intact distal pulses; The pedal pulses are 2+ and symmetric. Radial pulses are 2+ and symmetric. (-) Murmur Pulmonary/Chest wall: Effort normal. (-) Respiratory distress, (-) Wheezes, (-) Rales Abd: Soft, (-) Tenderness, (-) Distension, (-) Guarding, (-) Rebound Musculoskeletal: (-) Edema Lymph: (-) Cervical adenopathy Neuro: Alert, Oriented x3 Psych: Mood and affect Normal Triage Information Reviewed: Yes Vital Signs On Initial Exam: Initial Vitals Temp Pulse Resp BP Pulse Ox 98.5 F 103 14 170/88 97 08/11/17 20:36 08/11/17 20:36 08/11/17 20:36 08/11/17 20:36 08/11/17 20:36 Vital Signs Reviewed: Yes Diagnostics - Vital Signs Vital Signs Temp Pulse Resp BP Pulse Ox 08/11/17 20:36 98.5 F 103 14 170/88 97 - Laboratory Result Diagrams: 08/11/17 21:35 08/11/17 21:35 Lab Statement: Any lab studies that have been ordered have been reviewed, and results considered in the medical decision making process. - Radiology CXR Xray Interpretation: No Acute Changes Radiology Interpretation Completed By: Radiologist - NO ACTIVE DISEASE. - EKG 20:39 EKG Rhythm: Sinus Rhythm - 96 BPM EKG Interpretation: ST depression V2V3 Chest Pain Course/Dx - Course Course Of Treatment: Dr. Edwards will admit her, trend her cardiac enzymes, and administer GI cocktail. ED physician is concerned about coronary dissection encountered during last cardiac catheterization and stenting. He will admit pt to ICU on nitroglycerine drip. Dr. Edwards is at bedside directing all care. No heparin at this time. - Diagnoses Provider Diagnoses: Acute coronary syndrome - Critical Care Time Critical Care Time: 30-74 min - 60 min Discharge - Discharge Plan Condition: Stable Disposition: ADMITTED TO [facility] Patient Education Materials: Acute Coronary Syndrome (ED) Referrals: Karina Mcdonald MD [Primary Care Provider] - The documentation as recorded by the Ethan mulligan Stephanie accurately reflects the service I personally performed and the decisions made by Josh gonzales Jerry, MD.
--- NOTE | 2017-08-12 00:01 | ED ---
Kathleen Taylor Thomas, scribed for Guilherme Moreno MD on 08/11/17 at 2350 . Progress - Progress Note Progress Note: I re-evaluated the patient. She is pain free. After rate control and Nitro drop , ST depressions have resolved according to Dr. Edwards .There will not be a cardiac cath tonight. The patient developed hypotension with the Nitro drip. That hypotension spontaneously resolved after discontinuing the drip. Dr. Edwards recommended tele observation. Course/Dx - Provider Notifications Discussed Care Of Patient With: Joe Edwards Instructed by Provider To: Other - I discussed care with Dr. Edwards, interventional cardiology. The documentation as recorded by the yumikoibeKathleen Thomas accurately reflects the service I personally performed and the decisions made by Josh gonzales Jerry, MD.
[2017-08-12] MEDS ORDERED: Acetaminophen TAB* 325 MG PO PRN (00:55)
[2017-08-12] MEDS ORDERED: Al Hydrox/Mg Hydrox/Simet LIQ* 30 ML UDC PO PRN (00:55)
[2017-08-12] MEDS ORDERED: Potassium Chlor TAB* 20 MEQ TAB.ER PO ONE (01:11)
--- NOTE | 2017-08-12 01:16 | CONS ---
INTERVENTIONAL CARDIOLOGY ER CONSULT NOTE: DATE OF CONSULT: 08/11/16 HISTORY OF PRESENT ILLNESS: An 82-year-old woman known to me from my admission last week with non-ST elevation infarct. She returned to the ER this evening with recurring chest pain. Last week she had a non-ST elevation infarct with a culprit circumflex OM stenosis. She had stenting of the circumflex marginal branch, the procedure was accompanied by a proximal dissection on a severely angulated segment of the circumflex marginal, which was also stented. There was some lucency proximal to the proximal stent, which on IVUS showed an approximately 50% stenosis with a type 1 dissection, this was therefore not stented. She was discharged 2 days ago on dual antiplatelet therapy, but apparently inadvertently her Zantac 150 mg daily which she had been taking for years was not continued at discharge. She was asymptomatic until approximately 6 p.m. today when she started to have precordial burning discomfort radiating up into her neck and initially into the back of her neck, lasting only a few seconds to approximately a 10 minutes to 15 minutes at a time, she would then burp and the discomfort would resolve. It would then recur. This pattern continued and she presented to the ER. Here she had 2 sublingual nitroglycerin with unclear improvement, although she thinks the discomfort may be somewhat less. During the day during activity there was no difference in the episodes of discomfort in terms of intensity or precipitation, nothing seemed to make it resolve or develop. In her mind, it is very similar to what she had last week, but she also believes it is her acid reflux. At the time of cath, she had 80% mid RCA stenosis, which was not stented. The plan was for possible functional assessment as an outpatient. LVEF was measured as 40% to 45% by echo. She has not had heart failure symptoms or palpitations. She has been compliant with her dual antiplatelet therapy and her other medications. She was discharged on aspirin 81 mg daily, Brilinta 90 mg b.i.d., atenolol 50 daily, lisinopril 5 daily, Lipitor 80 daily, but apparently did not resume her Zantac even though it is listed on her discharge med list. PAST MEDICAL HISTORY: See recent H and P. FAMILY HISTORY: See recent H and P. SOCIAL HISTORY: See recent H and P. PHYSICAL EXAM: She is currently in no distress, she described momentary chest discomfort while I was examining her. She is receiving IV nitroglycerin. Blood pressure initially was 170/88 with a heart rate of 103, most recent vitals BP 120/77, pulse in the 90s. Her lungs are clear to percussion and auscultation. JVP and carotids are normal. HEENT: Unremarkable. Cardiac Exam : Notable only for frequent PACs and rare PVCs. She has no gallop, murmur or rub. The abdomen is benign. Her right radial artery is benign and patent. She has no peripheral edema with normal pedal pulses. DIAGNOSTIC STUDIES/LAB DATA: EKG on presentation shows sinus tachycardia with 1 to [address] depression in V2, V3 greater than previous, but in the setting of a heart rate of 96. Her troponin prior to discharge was 8.2 on the , tonight it is 0.98. Her CBC is unremarkable, her BMP includes normal electrolytes, normal lactate. Chest x-ray reported as without active disease. CT of the chest without contrast was benign without any evidence of aortic dissection. IMPRESSION: Recurrent chest pain 1 week post stenting for non-ST elevation infarct. The differential is between gastrointestinal etiology as she was not continued on her Zantac, and in her mind the symptoms are very reminiscent of her gastrointestinal symptoms, but I am also concerned about a cardiac etiology given the precordial ST depression, the pattern of discomfort and recent stenting. Her pattern of discomfort is not consistent with stent thrombosis, but I am concerned about a thrombus or intermittent flow limitation related to the stent and/or the proximal dissection. We will attempt to control her symptoms medically with titration of IV nitroglycerin, GI cocktail, IV beta blockade. Depending on the course she may require repeat coronary angiography. She will be admitted for observation. Thanks for the consultation. [id number]/[facility] #: [id number] LUDWIG
--- NOTE | 2017-08-12 02:05 | HP ---
CC: Karina Mcdonald MD; Joe Edwards MD * HISTORY AND PHYSICAL: DATE OF ADMISSION: 08/12/17 TIME OF EVALUATION: 0100 PRIMARY CARE PHYSICIAN: Karina Mcdonald MD CHIEF COMPLAINT: Chest pain. HISTORY OF PRESENT ILLNESS: This is an 82-year-old female with past medical history of recent NSTEMI, who was hospitalized from 08/06/17 to 08/09/17 and had a stent placed in her OM1, returned to the emergency room with chest pain that started this evening around dinner time. She had minimal appetite. Chest pain began before dinner, but worsened after dinner. She was not able to eat much. She had burning up her neck. She has been burping a lot, a lot of throat discomfort and feeling of food getting stuck. Because of this, she came to the emergency room for further evaluation. She denied associated shortness of breath and diaphoresis. No fevers, no recent URI illness. She has had a good appetite. No vomiting. She did start with diarrhea today. In the emergency room, the patient had labs. She was noted to have an elevated troponin in the setting of recent stenting. Dr. Edwards was called. He came in to evaluate the patient. There was concern for possible dissection, however, after GI cocktail, her symptoms have improved. She is now chest pain free. She was initially started on a nitro drip but her blood pressure dropped and has since improved after getting IV fluids and discontinuing of the nitro drip. It was also noted that the patient did not receive the second page of our med reconciliation, so she was not taking her Zantac or atenolol for the past few days since her discharge. Otherwise, review of systems negative. In the emergency room, the patient had aspirin 325 mg, GI cocktail, and as mentioned nitro and nitro drip, which she is now off. PAST MEDICAL HISTORY: 1. Recent NSTEMI, has stent to her OM1 done by Dr. Edwards. 2. Coronary artery disease. 3. Hyperlipidemia. 4. Hypertension. 5. GERD. MEDICATIONS: 1. Zantac 150 mg p.o. daily. 2. Aspirin 81 mg p.o. daily. 3. Brilinta 90 mg p.o. daily. 4. Atenolol 50 mg daily. 5. Lisinopril 5 mg daily. 6. Zantac 150 mg daily. 7. Atorvastatin 80 mg daily. 8. Calcium b.i.d. 9. Fish oil daily. ALLERGIES: ESOMEPRAZOLE, STATIN, SULFA. FAMILY HISTORY: Reviewed and noncontributory. SOCIAL HISTORY: The patient lives at home with her grandmother and son. She is independent to ADLs. Prior to all this, she was walking 2 miles a day. She quit smoking 50 years ago. At that time, she smoked for 15 years. She admits to occasional wine. Code status: Full code. Healthcare proxy are her son and daughter. REVIEW OF SYSTEMS: A 14-point review of systems as mentioned in the HPI, otherwise negative. PHYSICAL EXAMINATION GENERAL: No acute distress. Resting comfortably with her grandson at the bedside. VITAL SIGNS: Temp 98.5, pulse rate 76, respiratory rate 16, oxygen saturation 95 % on room air, blood pressure 121/82. HEENT: Head, normocephalic. Pupils equal and reactive, anicteric. Oropharynx : Mucous membranes moist. NECK: Supple. No nuchal rigidity. RESPIRATORY: Diminished breath sounds. No wheezing, rhonchi, or rales. CARDIAC: Regular rate and rhythm. Soft systolic murmur heard, most prominent in the left sternal base. No carotid bruits. ABDOMEN: Soft, nontender, nondistended. EXTREMITIES: No clubbing, cyanosis, or edema. NEUROLOGIC: Alert and oriented x3. No focal neurologic deficits. LABORATORY DATA: White count 6.1, hemoglobin 14.1, hematocrit 43, platelets 187,000. PTT is 86.5. Sodium 136, potassium 3.7, chloride 104, bicarb 24, BUN 23, creatinine 0.74. Troponin 0.98, repeat 2 hours later 0.94. RADIOGRAPHIC DATA: Chest x-ray, no active disease. Chest CT, noncontrast CT, no acute findings. Lungs are clear. EKG, initial EKG showed some ST depression, which has since improved on repeat EKG 2 hours later. ASSESSMENT: This is an 82-year-old female with past medical history of recent non- ST elevation myocardial infarction 3 days ago with stent placed, who returns with chest pain, indigestion after discontinuing her Zantac and atenolol. 1. Chest pain and indigestion. Assessment: The patient's history and physical are most consistent with GI etiology and indigestion, especially since she discontinued the Zantac unknowingly, did not realize, she did not get the second page of med reconciliation. However, it is concerning her troponin is still elevated but downtrending since her last admission, but she did have some ST depression on her EKG. Currently, she is chest pain free. Plan: We will admit her to telemetry. Continue to trend her troponins. Continue her home medication regimen including her Zantac. We will continue the GI cocktail, allow to continue her Brilinta, baby aspirin, atenolol and lisinopril. Follow up with Dr. Edwards in the morning regarding any further intervention. CHRONIC MEDICAL PROBLEMS: 1. Hypertension. As mentioned, resume her antihypertensives. 2. Hyperlipidemia. Continue her atorvastatin. 3. Gastroesophageal reflux disease. We do not have Zantac on formulary. We will place on omeprazole for now. 4. FEN. Place the patient on heart healthy diet. 5. DVT prophylaxis. The patient score is moderate risk. Place her on heparin subcu t.i.d. 6. Code status. Full code. TIME SPENT: Greater than 60 minutes was spent doing the history and physical, more than half time spent in direct patient contact. [id number]/[facility]PS #: [id number] LUDWIG
[2017-08-12] MEDS ORDERED: Heparin VIAL(*) 5000 UNITS/ML VIAL (FIVE THOUSAND) SUBCUT SCH (06:00)
[2017-08-12 08:08] VITALS: BP 136/73
[2017-08-12] MEDS ORDERED: Ticagrelor* 90 MG TAB PO SCH (09:00)
[2017-08-12] MEDS ORDERED: Famotidine TAB* 20 MG PO SCH (09:00)
[2017-08-12] MEDS ORDERED: Aspirin Low Dose CHEW TAB* 81 MG PO SCH (09:00)
[2017-08-12] MEDS ORDERED: Lisinopril TAB* 5 MG PO SCH (09:00)
[2017-08-12] MEDS ORDERED: Atenolol TAB* 50 MG PO SCH (09:00)
[2017-08-12] MEDS ORDERED: Atorvastatin* 80 MG TAB PO SCH (17:00)
--- NOTE | 2017-08-13 04:25 | DS ---
CC: Dr. Mcdonald; Dr. Edwards * DISCHARGE SUMMARY: DATE OF ADMISSION: 08/12/17 DATE OF DISCHARGE: 08/12/17 PRIMARY CARE PHYSICIAN: Dr. Mcdonald. ACCOUNT PROCESSOR: Dr. Edwards. PRIMARY DISCHARGE DIAGNOSIS: Gastroesophageal reflux disease. SECONDARY DISCHARGE DIAGNOSES: 1. Coronary artery disease, status post recent PCI to the OM1. 2. Hypertension. DISCHARGE MEDICATIONS: 1. Aspirin 81 mg daily. 2. Atenolol 50 mg daily. 3. Atorvastatin 80 mg daily. 4. Maalox 30 mL q.6 p.r.n. indigestion. 5. Lisinopril 5 mg daily. 6. Brilinta 90 mg daily. 7. Zantac 150 mg daily. HOSPITAL COURSE BY PROBLEM: 1. Gastroesophageal reflux disease. Ms. Martin reported epigastric and substernal discomfort after eating goulash last night, which was associated with belching and indigestion. She was concerned for myocardial infarction given that these symptoms were similar prior to her last admission when she was diagnosed with acute coronary syndrome. When she presented to the emergency department, her troponin was found to be 0.98; however, it was 8.2 on 08/06/17, so this was thought to be a continuing decline in her troponin from her prior cardiac event. She was seen by Dr. Edwards in the emergency department who recommended admitting her for observation and trending her troponins, monitoring her on tele. She had no events on telemetry and her chest pain did not recur. Her troponins continued to trend down and on the day of discharge, her most recent troponin is 0.80. Of note, her EKG did have ST depressions in lead V2. This was discussed with Dr. Edwards and since her troponin continues to trend down, he agrees that this is not likely to have been another cardiac event. Of note, she has her discharge summary with her and was missing a page that had famotidine on it. She is being instructed to continue famotidine daily and I am also prescribing Maalox p.r.n. 2. Coronary artery disease, status post recent non-ST elevation myocardial infarction. She is continued on Brilinta, aspirin, atenolol, and atorvastatin. These medications were not changed during this admission. 3. Hypertension. She is continued on atenolol and lisinopril. Her blood pressure was well controlled. FOLLOWUP NEEDED: An appointment with Dr. Edwards is scheduled for this week and she is also to follow up with Dr. Mcdonald before she leaves for her trip on 08/24. [id number]/[facility] #: [id number] [place]TD[place]
== END 2017-08-12 15:30 | disposition home or self-care (01) ==
LOC: ED 20:31 → MEDTELE 08-12 00:55
PROVIDERS: ADMIT Pediatrics; ATTEND Internal Medicine
DX: I24.9 Acute ischemic heart disease, unspecified (principal); R07.9 Chest pain, unspecified; M54.9 Dorsalgia, unspecified; Z87.891 Personal history of nicotine dependence; K21.9 Gastro-esophageal reflux disease without esophagitis; I10 Essential (primary) hypertension; Z79.82 Long term (current) use of aspirin
CPT/HCPCS: 36415; 71045; 71250; 80053; 83605; 83735; 84484; 85025; 93005; 99285; A9270-GY; G0378; J3490

== ENCOUNTER → 2018-03-20 11:22 | Emergency (ER) | payer MEDICARE ==
--- NOTE | 2018-03-20 11:37 | ED ---
Shortness of Breath - HPI Summary HPI Summary: This patient is a 83 year old F presenting to [facility] with a chief complaint of SOB that has been getting worse for the past 2 days. The patient rates the pain 0/10 in severity. Patient reports OZUNA. Patient denies cough, CP, LE pain, and fever. Pt had stents placed on 08/01 and called her offset proof press operator today Dr. Guillory and he sent her here for orthopnea. - History of Current Complaint Chief Complaint: EDShortnessOfBreath Time Seen by Provider: 03/20/18 11:30 Hx Obtained From: Patient Onset/Duration: Still Present Timing: Constant Current Severity: Moderate Dyspnea At: Orthopena Associated Signs & Symptoms: Negative - cough, CP, LE pain, fever, - Allergy/Home Medications Allergies/Adverse Reactions: Allergies Allergy/AdvReac Type Severity Reaction Status Date / Time MS Esomeprazole [From Nexium] Allergy Itching Verified 03/20/18 11:58 MS Statins [Statins] Allergy Muscle Ache Verified 03/20/18 11:58 MS Sulfa Drugs [Sulfa Drugs] Allergy Hives Verified 03/20/18 11:58 Home Medications: Home Medications Calcium Carb/Vit D3/Minerals [Calcium 600+D Plus [place]] 1 tab PO BID 03/20/18 [ History Confirmed 03/20/18] PMH/Surg Hx/FS Hx/Imm Hx Endocrine/Hematology History: Denies: Hx Anticoagulant Therapy Cardiovascular History: Reports: Hx Hypercholesterolemia, Hx Hypertension, Hx Myocardial Infarction GI History: Reports: Hx Diverticulosis, Hx Gastroesophageal Reflux Disease History: Reports: Hx Kidney Stones Sensory History: Reports: Hx Contacts or Glasses Denies: Hx Hearing Aid Opthamlomology History: Reports: Hx Contacts or Glasses - Surgical History Surgery Procedure, Year, and Place: Tubal ligation approx. 50 yrs ago. Cardiac cath with 2 stents placed 07/2017 Hx Anesthesia Reactions: No - Family History Known Family History: Positive: Cardiac Disease - Social History Alcohol Use: None Substance Use Type: Reports: None Smoking Status (MU): Former Smoker Review of Systems Negative: Fever Negative: Chest Pain Positive: Shortness Of Breath, Other - OZUNA . Negative: Cough All Other Systems Reviewed And Are Negative: Yes Physical Exam - Summary Physical Exam Summary: Appearance: Well-appearing, Well-nourished, lying in bed comfortably Skin: Warm, dry, no obvious rash Eyes: sclera anicteric, no conjunctival pallor ENT: mucous membranes moist, pharynx appears normal Neck: Supple, nontender Respiratory: Clear to auscultation, no signs of respiratory distress Cardiovascular: Normal S1, S2. No murmurs. Normal distal pulses in tibial and radial bilaterally. Abdomen: Soft, nontender, normal active bowel sounds present Musculoskeletal: Normal, Strength/ROM Intact Neurological: A&Ox3, awake and alert, mentation is normal, speech is fluent and appropriate Psychiatric: affect is normal, does not appear anxious or depressed Triage Information Reviewed: Yes Vital Signs Reviewed: Yes Diagnostics - Laboratory Result Diagrams: 03/20/18 11:47 03/20/18 11:47 Lab Statement: Any lab studies that have been ordered have been reviewed, and results considered in the medical decision making process. - Radiology CXR Radiology Interpretation Completed By: Radiologist - Stigmata of probable obstructive lung disease. No acute pulmonary or cardiac process evident. ED physician has reviewed this radiology report. - EKG 11:29 Cardiac Rate: Tachycardia EKG Rhythm: Sinus Tachycardia - sinus tachycardia at 102 BPM, frequent PVCs, and T waves are within normal limits, T waves and intervals are normal, no ischemic changes. This is a normal EKG Course/Dx - Course Course Of Treatment: This is an elderly woman with known coronary artery disease who presents with gradually worsening dyspnea on exertion over the last few days. There is concern that this could be an anginal equivalent versus incipient heart failure. Her physical exam is fairly unremarkable, there are no crackles, she appears comfortable without any signs of respiratory distress. Her EKG does not show any new ischemic changes. Her BNP is moderately elevated. A D-dimer test was sent and that is mildly elevated, but is normal after correcting for her age. I discussed the case with her offset proof press operator, Dr. Guillory, who felt comfortable giving her workup done within echocardiogram and stress test from the office. If the patient's symptoms worsen over the course of the weekend she'll need to return here. - Diagnoses Provider Diagnoses: Dyspnea - Physician Notifications Discussed Care of Patient With: Zia Guillory Time Discussed With Above Provider: 12:48 Instructed by Provider To: Other - We discussed patient care with Dr. Guillory and he stated that he will work her up as an outpatient Discharge - Sign-Out/Discharge Documenting (check all that apply): Patient Departure - Discharge Plan Condition: Good Disposition: HOME Patient Education Materials: Dyspnea (ED) Referrals: Zia Guillory MD [Medical Doctor] - - Attestation Statements Document Initiated by Scribe: Yes Documenting Scribe: Nick Powell Provider For Whom Scribe is Documenting (Include Credential): Jose Rajput MD Scribe Attestation: Nick Taylor, scribed for Jose Rajput MD on 03/20/18 at 1257.
[2018-03-20 12:05] LABS: ABS Basophils 0 10^3/ul (0-0.2); ABS Eosinophils 0 10^3/ul (0-0.6); ABS Lymphocytes 0.8 10^3/ul (1.0-4.8); ABS Monocytes 0.5 10^3/ul (0-0.8); ABS Neutrophils 3.4 10^3/ul (1.5-7.7); ABS Nucleated RBC 0 10^3/ul; Eosinophil % 0.5 % (0-6); Hematocrit 39 % (35-47); Hemoglobin 12.9 g/dl (12.0-16.0); Lymphocyte % 17.4 % (25-47); Mean Corpuscular HGB Conc 33 g/dl (31-36); Mean Corpuscular Hemoglobin 31 pg (27-31); Mean Corpuscular Volume 95 fL (80-97); Mean Platelet Volume 9.3 um3 (7.4-10.4); Nucleated Red Blood Cells % 0; Platelet Count 127 10^3/ul (150-450); Red Blood Count 4.13 10^6/ul (4.00-5.40); Red Cell Distribution Width 15 % (10.5-15); White Blood Count 4.8 10^3/ul (3.5-10.8)
[2018-03-20 12:18] LABS: EGFR Non-African American 70.4 (>60)
--- NOTE | 2018-03-20 12:31 | RAD ---
INDICATION: Shortness of breath. Cardiac disease with prior stents. COMPARISON: August 11, 2017 CT. August 11, 2017 chest radiograph. TECHNIQUE: Dual energy PA and routine lateral views of the chest were obtained. REPORT: Elevated lung volumes. No focal pulmonary lesion, compelling alveolar consolidation, pleural effusion, pneumothorax. Negative for cardiomegaly. Unremarkable central pulmonary vasculature. Moderately tortuous descending thoracic aorta. Advanced degenerative arthropathy and multiple chronic calcified loose bodies at the RIGHT glenohumeral joint. IMPRESSION: #. Stigmata of probable obstructive lung disease. No acute pulmonary or cardiac process evident.
[2018-03-20 13:06] VITALS: BP 159/83
== END | disposition home or self-care (01) ==
LOC: ED 11:22
DX: R06.00 Dyspnea, unspecified (principal); I48.91 Unspecified atrial fibrillation; I25.2 Old myocardial infarction; I10 Essential (primary) hypertension; Z95.5 Presence of coronary angioplasty implant and graft; Z82.49 Family history of ischemic heart disease and other diseases of the circulatory system; Z88.2 Allergy status to sulfonamides; Z88.8 Allergy status to other drugs, medicaments and biological substances; Z87.891 Personal history of nicotine dependence
CPT/HCPCS: 36415; 71046; 80053; 83880; 84484; 85025; 85379; 87040; 93005; 99282

== ENCOUNTER 2023-05-28 04:06 | Observation (INO) ==
[2023-05-28 04:24] LABS: ABS Lymphocytes 1.1 10^3/uL (1.0-4.8); ABS Monocytes 0.5 10^3/uL (0.0-0.9); ABS Neutrophils 3.4 10^3/uL (1.5-7.6); ABS Nucleated RBC 0.01 10^3/ul; Hematocrit 40.1 % (35-45); Hemoglobin 13.3 g/dL (11.5-14.3); Lymphocyte % 20.9 %; Mean Corpuscular Hemoglobin 31.8 pg (27-33); Mean Corpuscular Hgb Conc 33.2 g/dL (31-36); Mean Corpuscular Volume 95.7 fL (80-97); Nucleated Red Blood Cells % 0.1 %/100WBC (0.0-0.8); Platelet Count 149 10^3/uL (150-450); Red Cell Distribution Width 15.2 % (12-17); White Blood Count 5.1 10^3/uL (3.8-11.8)
[2023-05-28 04:30] LABS: INR 1.07 (0.83-1.13)
[2023-05-28 04:41] LABS: Albumin 3.7 g/dL (3.2-5.2); Albumin/Globulin Ratio 1.5 (1-3); Creatinine, Serum 0.92 mg/dL (0.51-0.95); Globulin 2.5 g/dL (2-4); Potassium 4.2 mmol/L (3.5-5.0); Total Bilirubin 0.8 mg/dL (0.2-1.0); Total Protein 6.2 g/dL (6.4-8.9); eGFR CKD-EPI 59.5 (>60)
[2023-05-28 05:05] LABS: Magnesium 1.9 mg/dL (1.9-2.7)
[2023-05-28 05:43] LABS: TSH Ultra Thyroid Stim Horm 4.32 mcIU/mL (0.34-5.60)
[2023-05-28 05:53] LABS: High Sensitivity Troponin 1 Hr 21 pg/mL (<15)
[2023-05-28] MEDS ORDERED: Iodixanol (CONTRAST) 320 MG/ML 100 ML SDV IV ONE (09:07)
[2023-05-28 09:42] LABS: High Sensitivity Troponin 3 Hr 32 pg/mL (<15)
[2023-05-28] MEDS ORDERED: Enoxaparin 80 MG/0.8 ML SYR SUBCUT ONE (10:54)
[2023-05-28] MEDS ORDERED: Carboxymethylcellulos 1% OPTH 1 AMP BOTH EYES PRN (11:15)
[2023-05-28] MEDS ORDERED: Metoprolol Tartrate 5 mg VIAL 5 ml VIAL (1 mg/ml) IV ONE (11:17)
[2023-05-28] MEDS ORDERED: Magnesium Sulfate 2 gm BAG 2 GM/50 ML BAG IVPB ONE (11:47)
[2023-05-28] MEDS ORDERED: Furosemide 20 mg/2 ml IV VIAL IV SLOW PU ONE (13:11)
[2023-05-28] MEDS ORDERED: Senna TAB 8.6 mg TAB PO SCH (21:00)
[2023-05-29] MEDS ORDERED: Metoprolol Tartrate 5 mg VIAL 5 ml VIAL (1 mg/ml) IV PRN (00:02)
[2023-05-29 06:09] LABS: ABS Lymphocytes 0.7 10^3/uL (1.0-4.8); ABS Monocytes 0.5 10^3/uL (0.0-0.9); ABS Neutrophils 2.8 10^3/uL (1.5-7.6); ABS Nucleated RBC 0.02 10^3/ul; Eosinophil % 1.3 %; Hematocrit 36.4 % (35-45); Hemoglobin 12.3 g/dL (11.5-14.3); Lymphocyte % 16.6 %; Mean Corpuscular Hemoglobin 32.2 pg (27-33); Mean Corpuscular Hgb Conc 33.8 g/dL (31-36); Mean Corpuscular Volume 95.3 fL (80-97); Mean Platelet Volume 9.1 fL (7.5-11.2); Nucleated Red Blood Cells % 0.4 %/100WBC (0.0-0.8); Platelet Count 135 10^3/uL (150-450); Red Blood Count 3.81 10^6/uL (3.63-4.92); Red Cell Distribution Width 15.1 % (12-17)
[2023-05-29 06:17] LABS: Calcium 8.7 mg/dL (8.6-10.3); Creatinine, Serum 0.8 mg/dL (0.51-0.95); Potassium 3.9 mmol/L (3.5-5.0); eGFR CKD-EPI 70.4 (>60)
[2023-05-29] MEDS ORDERED: fentaNYL 100 mcg/2 ml 50 MCG/ML VIAL IV SLOW PU ONE (08:07)
[2023-05-29] MEDS ORDERED: Midazolam 10 mg/10 ml VIAL 1 mg/ml 10 ml VIAL (10 mg) IV SLOW PU ONE (08:07)
[2023-05-29] MEDS ORDERED: Polyethylene Glycol 3350 17 GM PACKET PO SCH (09:00)
[2023-05-29] MEDS ORDERED: fentaNYL 100 mcg/2 ml 50 MCG/ML VIAL ONE (11:15)
[2023-05-29] MEDS ORDERED: Naloxone 0.4 mg VIAL 0.4 mg/ml 1 ml VIAL ONE (11:15)
[2023-05-29] MEDS ORDERED: Midazolam 5 mg/5 ml VIAL 1 mg/ml 5 ml VIAL (5 mg) ONE (11:15)
[2023-05-29] MEDS ORDERED: Flumazenil 0.5 mg/5 ml 0.1 MG/ML 5 ml VIAL ONE (11:15)
[2023-05-29 16:05] VITALS: BP 144/83
== END 2023-05-29 17:35 | disposition home or self-care (01) ==
LOC: ED 04:06 → EDHOLD 04:06 → MEDTELE 15:01
PROVIDERS: ADMIT Internal Medicine; ATTEND Internal Medicine

== ENCOUNTER 2023-06-03 02:49 | Observation (INO) ==
[2023-06-03] MEDS ORDERED: Metoprolol Tartrate 5 mg VIAL 5 ml VIAL (1 mg/ml) IV ONE (03:31)
[2023-06-03 03:48] LABS: ABS Lymphocytes 0.6 10^3/uL (1.0-4.8); ABS Monocytes 0.5 10^3/uL (0.0-0.9); ABS Neutrophils 3.2 10^3/uL (1.5-7.6); ABS Nucleated RBC 0.01 10^3/ul; Eosinophil % 0.9 %; Hematocrit 38.6 % (35-45); Hemoglobin 13.1 g/dL (11.5-14.3); Lymphocyte % 14.7 %; Mean Corpuscular Hemoglobin 31.8 pg (27-33); Mean Corpuscular Hgb Conc 33.8 g/dL (31-36); Mean Corpuscular Volume 94.2 fL (80-97); Nucleated Red Blood Cells % 0.2 %/100WBC (0.0-0.8); Platelet Count 181 10^3/uL (150-450); Red Cell Distribution Width 15.1 % (12-17); White Blood Count 4.4 10^3/uL (3.8-11.8)
[2023-06-03 04:10] LABS: Albumin 3.7 g/dL (3.2-5.2); Albumin/Globulin Ratio 1.5 (1-3); Calcium 8.9 mg/dL (8.6-10.3); Creatinine, Serum 0.81 mg/dL (0.51-0.95); Globulin 2.4 g/dL (2-4); Magnesium 1.9 mg/dL (1.9-2.7); Potassium 3.6 mmol/L (3.5-5.0); Total Bilirubin 0.6 mg/dL (0.2-1.0); Total Protein 6.1 g/dL (6.4-8.9); eGFR CKD-EPI 69.3 (>60)
[2023-06-03 05:27] LABS: High Sensitivity Troponin 1 Hr 25 pg/mL (<15)
[2023-06-03] MEDS ORDERED: Furosemide 40 mg/4 ml IV VIAL IV ONE (08:49)
[2023-06-03 10:00] LABS: C Reactive Protein 1.73 mg/L (<8.01)
[2023-06-03 12:19] LABS: Erythrocyte Sed Rate 5 mm/Hr (0-29)
[2023-06-04 05:49] LABS: ABS Eosinophils 0.1 10^3/uL (0.0-0.5); ABS Lymphocytes 0.9 10^3/uL (1.0-4.8); ABS Monocytes 0.5 10^3/uL (0.0-0.9); ABS Neutrophils 2.6 10^3/uL (1.5-7.6); ABS Nucleated RBC 0.01 10^3/ul; Eosinophil % 2.3 %; Hematocrit 38.1 % (35-45); Hemoglobin 12.7 g/dL (11.5-14.3); Lymphocyte % 21.6 %; Mean Corpuscular Hemoglobin 31.5 pg (27-33); Mean Corpuscular Hgb Conc 33.3 g/dL (31-36); Mean Corpuscular Volume 94.7 fL (80-97); Mean Platelet Volume 9.1 fL (7.5-11.2); Nucleated Red Blood Cells % 0.3 %/100WBC (0.0-0.8); Platelet Count 174 10^3/uL (150-450); Red Blood Count 4.03 10^6/uL (3.63-4.92); White Blood Count 4.2 10^3/uL (3.8-11.8)
[2023-06-04 06:12] LABS: Calcium 8.8 mg/dL (8.6-10.3); Creatinine, Serum 0.78 mg/dL (0.51-0.95); Magnesium 1.9 mg/dL (1.9-2.7); Potassium 3.5 mmol/L (3.5-5.0); eGFR CKD-EPI 72.6 (>60)
[2023-06-04 11:22] VITALS: BP 119/74
== END 2023-06-04 15:35 | disposition home or self-care (01) ==
LOC: EDHOLD 02:49 → ED 02:49 → SUATTDRO 08:39 → MEDTELE 11:16
PROVIDERS: ADMIT Student in an Organized Health Care Education/Training Program; ATTEND Hospitalist